=== PATIENT | female | born 1955 | race Caucasian/White ===

== ENCOUNTER 2020-05-01 11:41 | Inpatient (IN) ==
[2020-05-01 15:42] LABS: Basophils # 0.1 10*3/uL (0.0-0.2); Basophils % 0.7 % (0.0-0.8); Eosinophils # 0.1 10*3/uL (0.0-0.87); Hematocrit 42.2 VOL% (35.7-47.0); Hemoglobin 13.9 GM/DL (12.0-16.0); Immature Granulocytes % 0.3 %; Immature Granulocytes Absolute 0.03 #; Lymphocytes # 2.2 10*3/uL (1.4-4.0); Lymphocytes % 24.3 % (21.3-54.2); Mean Corpuscular HGB Conc 32.9 GM/DL (32-36); Mean Corpuscular Volume 97.5 FL (87-102); Mean Platelet Volume 9.7 FL (9.6-12.0); Monocytes % 5.9 % (1.7-12.7); Neutrophils % 67.8 % (38.7-73.9); Platelet Count 206 T/CUMM (130-400); Red Blood Count 4.33 MC/CUMM (3.8-5.5); Red Cell Distribution Width 12.5 % (9.3-17.3); White Blood Count 8.8 T/CUMM (4-12)
[2020-05-01 16:03] LABS: Apearance,Urine Slightly Hazy (Clear); Bilirubin,Urine Negative (Negative); Blood, Urine Negative (Negative); Glucose,Urine (UA) Negative (Negative); Ketones,Urine 20 mg/dL (Negative); Nitrite,Urine Negative (Negative); Protein,Urine Negative; RBC,Urine 3 /HPF (0-4); Squamous Epithelial Cell,Urine Occasional /HPF (0-10); Urine Color Yellow (Yellow); Urine Specific Gravity 1.012 (1.001-1.035); Urine Urobilinogen < 2.0 EU/DL (0.2-1.0); WBC,Urine <1 /HPF (0-6)
[2020-05-01 16:06] LABS: Albumin 4.3 G/DL (3.4-5.0); Bilirubin,Total 1.3 MG/DL (0.2-1.0); Calcium 9.6 MG/DL (8.5-10.1); Osmolality,Calculated 273.7 MOS/KG (273-304); Total Protein 8.2 G/DL (6.4-8.3)
[2020-05-01 16:38] LABS: Ferritin 195.2 ng/ml (8-252)
[2020-05-01] MEDS ORDERED: hydrALAZINE 20 MG/1 ML VIAL IV PRN (19:04)
[2020-05-01] MEDS ORDERED: DEXTROSE 10% 250 ML BAG IV PRN (19:04)
[2020-05-01] MEDS ORDERED: MORPHINE 4 MG/1 ML VIAL IV PRN (19:04)
[2020-05-01] MEDS ORDERED: NICOTINE 21 MG/24 HR PATCH TRANSDERM PRN (19:04)
[2020-05-01] MEDS ORDERED: PROMETHAZINE 25 MG/1 ML VIAL IM PRN (19:04)
[2020-05-01] MEDS ORDERED: ACETAMINOPHEN 325 MG TABLET PO PRN (19:04)
[2020-05-01] MEDS ORDERED: GLUCAGON 1 MG VIAL IM PRN (19:04)
[2020-05-01] MEDS ORDERED: DOCUSATE SODIUM 100 MG CAPSULE PO PRN (19:04)
[2020-05-01] MEDS ORDERED: ZALEPLON 5 MG CAPSULE PO PRN (19:04)
[2020-05-01] MEDS ORDERED: diphenhydrAMINE CAP 25 MG CAPSULE PO PRN (19:04)
[2020-05-01] MEDS ORDERED: guaiFENesin/DM ER 600-30 MG TABLET PO PRN (19:04)
[2020-05-01] MEDS ORDERED: AZITHROMYCIN INJ 500 MG in SODIUM CHLORIDE 0.9% 250 ML IV SCH (19:30)
[2020-05-01] MEDS ORDERED: ENOXAPARIN 40 MG/0.4 ML SYRINGE SUBCUT SCH (19:30)
[2020-05-01] MEDS: ENOXAPARIN 80 MG/0.8 ML SYRINGE SUBCUT SCH (19:50)
[2020-05-01] MEDS: cefTRIAXone 1,000 MG in SYRINGE 1 EACH IV SCH (22:08)
[2020-05-01] MEDS: SODIUM CHLORIDE 0.9% 1,000 ML IV SCH (22:15)
[2020-05-01] MEDS: amLODIPine 5 MG TABLET PO SCH (22:36)
[2020-05-02 07:16] LABS: Basophils % 0.7 % (0.0-0.8); Eosinophils # 0.1 10*3/uL (0.0-0.87); Eosinophils % 2.3 % (0.00-10.9); Hematocrit 47.2 VOL% (35.7-47.0); Hemoglobin 16.2 GM/DL (12.0-16.0); Immature Granulocytes % 0.5 %; Immature Granulocytes Absolute 0.02 #; Lymphocytes # 1.2 10*3/uL (1.4-4.0); Lymphocytes % 27.5 % (21.3-54.2); Mean Corpuscular HGB Conc 34.3 GM/DL (32-36); Mean Corpuscular Volume 93.8 FL (87-102); Mean Platelet Volume 9.9 FL (9.6-12.0); Monocytes % 7.6 % (1.7-12.7); Neutrophils % 61.4 % (38.7-73.9); Platelet Count 133 T/CUMM (130-400); Red Blood Count 5.03 MC/CUMM (3.8-5.5); Red Cell Distribution Width 12.6 % (9.3-17.3); White Blood Count 4.4 T/CUMM (4-12)
[2020-05-02 07:18] LABS: Albumin 3.4 G/DL (3.4-5.0); Bilirubin,Total 0.4 MG/DL (0.2-1.0); Calcium 8.4 MG/DL (8.5-10.1); Osmolality,Calculated 279.3 MOS/KG (273-304); Risk Ratio 3.17; VLDL CHOLESTEROL 17.6 MG/DL
[2020-05-02] MEDS: SODIUM CHLORIDE 0.9% 1,000 ML IV SCH ×3 (07:19→21:39)
[2020-05-02] MEDS: ENOXAPARIN 80 MG/0.8 ML SYRINGE SUBCUT SCH (07:19)
[2020-05-02] MEDS: PANTOPRAZOLE 40 MG TABLET PO SCH (09:21)
[2020-05-02] MEDS: AZITHROMYCIN 250 MG TABLET PO SCH (09:21)
[2020-05-02] MEDS ORDERED: ALTEPLASE 12 MG in SODIUM CHLORIDE 0.9% 240 ML IV SCH ×2 (13:30→14:44)
[2020-05-02] MEDS ORDERED: LIDOCAINE 1% 20 ML VIAL ONE (13:54)
[2020-05-02] MEDS ORDERED: HYDROmorphone 2 MG/1 ML VIAL ONE (13:55)
[2020-05-02] MEDS ORDERED: MIDAZOLAM 2 MG/2 ML VIAL ONE (13:56)
[2020-05-02] MEDS ORDERED: SODIUM CHLORIDE 0.9% 1,000 ML IV SCH ×2 (14:17→14:26)
[2020-05-02] MEDS ORDERED: HEPARIN DRIP 25,000 UNITS/500 ML PREMIX IV SCH ×2 (15:00)
[2020-05-02 15:02] LABS: INR 1.1; PT Patient Result 11.4 SECS (9.8-11.9); Partial Thromboplastin Time 30.9 SECS (23.9-33.8)
[2020-05-02] MEDS: cefTRIAXone 1,000 MG in SYRINGE 1 EACH IV SCH (20:18)
[2020-05-02] MEDS: amLODIPine 5 MG TABLET PO SCH (20:18)
[2020-05-02] MEDS ORDERED: ALBUTEROL 2.5 MG/3 ML NEB RESP TX ONE (20:50)
[2020-05-02] MEDS ORDERED: FUROSEMIDE 20 MG/2 ML VIAL IV ONE (20:53)
[2020-05-02] MEDS ORDERED: ALBUTEROL 2.5 MG/3 ML NEB RESP TX PRN (21:37)
[2020-05-02] MEDS ORDERED: ALBUTEROL 2.5 MG/3 ML NEB RESP TX SCH (22:00)
[2020-05-02] MEDS ORDERED: ONDANSETRON 4 MG/2 ML VIAL IV PRN (23:20)
[2020-05-03 03:44] LABS: Basophils % 0.5 % (0.0-0.8); Eosinophils # 0.1 10*3/uL (0.0-0.87); Hematocrit 36.8 VOL% (35.7-47.0); Hemoglobin 12.2 GM/DL (12.0-16.0); Immature Granulocytes % 0.2 %; Immature Granulocytes Absolute 0.02 #; Lymphocytes # 1.2 10*3/uL (1.4-4.0); Lymphocytes % 14.3 % (21.3-54.2); Mean Corpuscular HGB Conc 33.2 GM/DL (32-36); Mean Corpuscular Volume 97.4 FL (87-102); Mean Platelet Volume 9.7 FL (9.6-12.0); Monocytes % 6.9 % (1.7-12.7); Neutrophils % 77.1 % (38.7-73.9); Platelet Count 157 T/CUMM (130-400); Red Blood Count 3.78 MC/CUMM (3.8-5.5); Red Cell Distribution Width 12.5 % (9.3-17.3); White Blood Count 8.7 T/CUMM (4-12)
[2020-05-03] MEDS: SODIUM CHLORIDE 0.9% 1,000 ML IV SCH ×2 (03:45→10:51)
[2020-05-03 04:32] LABS: Calcium 7.9 MG/DL (8.5-10.1); Osmolality,Calculated 277.4 MOS/KG (273-304)
[2020-05-03 04:58] LABS: Troponin I 0.052 NG/ML (0.00-0.045)
[2020-05-03] MEDS: AZITHROMYCIN 250 MG TABLET PO SCH (08:01)
[2020-05-03] MEDS: PANTOPRAZOLE 40 MG TABLET PO SCH (08:01)
[2020-05-03] MEDS ORDERED: APIXABAN 5 MG TABLET PO SCH (12:30)
[2020-05-03] MEDS: APIXABAN 5 MG TABLET PO SCH ×2 (13:46→20:13)
[2020-05-03] MEDS: cefTRIAXone 1,000 MG in SYRINGE 1 EACH IV SCH (20:10)
[2020-05-03] MEDS: amLODIPine 5 MG TABLET PO SCH (20:13)
[2020-05-04 06:59] LABS: Basophils % 0.4 % (0.0-0.8); Eosinophils # 0.2 10*3/uL (0.0-0.87); Eosinophils % 2.7 % (0.00-10.9); Hematocrit 34.3 VOL% (35.7-47.0); Hemoglobin 11.6 GM/DL (12.0-16.0); Immature Granulocytes % 0.3 %; Immature Granulocytes Absolute 0.02 #; Lymphocytes # 1.6 10*3/uL (1.4-4.0); Lymphocytes % 21.9 % (21.3-54.2); Mean Corpuscular HGB Conc 33.8 GM/DL (32-36); Mean Corpuscular Volume 96.3 FL (87-102); Mean Platelet Volume 10.4 FL (9.6-12.0); Monocytes % 8.1 % (1.7-12.7); Neutrophils % 66.6 % (38.7-73.9); Platelet Count 157 T/CUMM (130-400); Red Blood Count 3.56 MC/CUMM (3.8-5.5); Red Cell Distribution Width 12.6 % (9.3-17.3); White Blood Count 7.1 T/CUMM (4-12)
[2020-05-04 07:27] LABS: Calcium 8.2 MG/DL (8.5-10.1)
[2020-05-04] MEDS: PANTOPRAZOLE 40 MG TABLET PO SCH (08:42)
[2020-05-04] MEDS: AZITHROMYCIN 250 MG TABLET PO SCH (08:42)
[2020-05-04] MEDS: APIXABAN 5 MG TABLET PO SCH (08:43)
[2020-05-04 12:32] VITALS: BP 132/64
[2020-05-10] MEDS ORDERED: APIXABAN 5 MG TABLET PO SCH (09:00)
== END 2020-05-04 15:19 | disposition home or self-care (01) | DRG 175 ==
LOC: N.ED 11:41 → N.EDINP 19:04 → SUPCPDRO 19:04 → SUATTDRO 19:04 → N.EDINP 21:25 → N.ICU 21:35 → N.4E 05-03 15:10
PROVIDERS: ADMIT Internal Medicine; ATTEND Internal Medicine